=== PATIENT | male | born 1960 | race African-American/Black ===

== ENCOUNTER 2017-01-12 11:01 | Outpatient (CLI) | payer MEDICARE, OTHER ==
--- NOTE | 2017-01-12 11:49 | Diagnostic Imaging Report ---
Indications: One, 2 left fifth toe, pain Technique: 3 views left foot. Findings: Comparison: None Linear lucency appears to traverse the expected region of the fifth distal interphalangeal joint. The fifth middle and distal phalanges appear otherwise fused. Surrounding soft tissues are swollen. No additional fracture, dislocation, joint space widening , soft tissue foreign body/gas, or other acute changes are identified. IMPRESSION: Hypoplastic fifth distal interphalangeal joint versus nondisplaced fracture through fused middle and distal phalanges. If clinically indicated, consider dedicated left fifth toe radiographs for more detailed evaluation..
== END 2017-01-12 12:31 | disposition home or self-care (01) ==
LOC: RAD 11:01
DX: M25.572 Pain in left ankle and joints of left foot (principal)